=== PATIENT | male | born 1950 | race Caucasian/White ===

== ENCOUNTER 2021-01-21 13:35 | Inpatient (IN) | payer OTHER ==
[~2021-01-21] VITALS: Ht 177.8 cm; Wt 103.0 kg
[~2021-01-21 13:35] MED LIST: ADULT LOW DOSE81 MG PO; ASPIRIN81 M2 PO; CARDURA8 MG PO
[2021-01-21 13:45] VITALS: BP 113/74
--- NOTE | 2021-01-21 13:59 | NUR ---
PT NOTES ONSET OF ABDOMINAL PAIN, NAUSEA AND DIARRHEA ONSET 0300AM TODAY. PT DENIES VOMITING. PT DENIES FEVER. PT DENIES URINARY S/S. PT DENIES BLOOD IN STOOL. PT STATES ONLY GI HX IS HAVING GALLBLADDER REMOVED. PT STATES EATING AND DRINKING NORMALLY YESTERDAY. PT DENIES BEING AROUND ANYONE SICK. PT DAUGHTER AT BEDSIDE. PT IS ALERT AND ORIENTED X4, GCS 15, PT AMBULATORY WITH STEADY GAIT, P FLOWERS, PT SKIN PWD, VSS ON RA, CALL LIGHT ENCOURAGED TO USE
[2021-01-21 14:12] LABS: HEMOGLOBIN 15.7 gm/dL (14.0-18.0); MCHC 34.3 g/dL (28.0-37.0); PLATELET COUNT 196 thou/uL (150-400); WBC 7.8 thou/uL (4.0-11.0)
[2021-01-21 14:14] LABS: BASOPHILS 0.1 % (0.0-2.0); HEMATOCRIT 45.8 % (42.0-52.0); LYMPHOCYTES 6.3 % (24.0-44.0); MCH 31.1 pg (26.0-34.0); MCV 90.6 fL (80.0-100.0); MONOCYTES 3.2 % (1.0-8.0); POLYS 90.4 % (36.0-66.0); RBC 5.05 mil/uL (4.50-6.00); RDW 14.1 % (10.5-14.5)
[2021-01-21 14:28] LABS: POTASSIUM 3.5 mmol/L (3.5-5.1)
[2021-01-21 14:34] LABS: ALBUMIN 3.8 g/dL (3.4-5.0); DIRECT BILIRUBIN 0.2 mg/dL (<0.1-0.2); TOTAL BILIRUBIN 0.9 mg/dL (0.2-1.0)
[2021-01-21 15:20] LABS: URINE BILIRUBIN NEGATIVE (Negative); URINE BLOOD NEGATIVE (Negative); URINE CLARITY CLEAR; URINE COLOR YELLOW; URINE GLUCOSE-RANDOM* NEGATIVE (Negative); URINE KETONES TRACE (Negative); URINE LEUKOCYTES-REFLEX NEGATIVE (Negative); URINE NITRITE-REFLEX NEGATIVE (Negative); URINE PROTEIN (DIPSTICK) NEGATIVE (Negative)
[2021-01-21 16:35] VITALS: BP 140/81
[2021-01-21 16:48] VITALS: BP 133/68
[2021-01-21 17:14] VITALS: BP 138/68
[2021-01-21] MEDS ORDERED: HYDROCHLOROTHIA25 M1 PO (18:19)
[2021-01-21] MEDS ORDERED: ALLOPURINOL 10100 M3 PO (18:19)
[2021-01-21] MEDS ORDERED: OMEPRAZOLE40 MG PO (18:20)
[2021-01-21] MEDS ORDERED: IRON325 PO (18:21)
[2021-01-21 18:52] VITALS: BP 122/66
--- NOTE | 2021-01-21 19:49 | NUR ---
Admitted from the ER at approx 1715 due to SBO; transferred to bed safely. On telemetry; no complains and signs of chest pain, crushing sensation and heaviness. Assisted in ADLs. Vital signs stable. On room air. Admission assessment, history, education done; admission forms signed. On nothing per orem- pt informed and aware; mouth swabs done. With NG tube at L nare- a/w xray to be done to confirm placement then to be hooked to low intermitted suction. With SL at R AC- intact. Up ad wade. Continent of bowel and bladder, Pt's belongings documented; with daughter at bedside during admission. No complains of pain made during assessment. Called Dr Saini's office; pt requesting to have sleeping medication- order for ativan obtained PRN OD at HS only; ordered IVF as well D5NS at 125cc/hr, verified w/ physician if pt to have surgery tomorrow so covid swab can be done, physician hang up- pt and daughter updated re: plan of care. Verified from chest xray result- NG in pt's stomach- connected to low intermitted suction- output to be measured and recorded. To continue monitoring patient.
[2021-01-22 04:36] VITALS: BP 112/60
--- NOTE | 2021-01-22 06:10 | NUR ---
RECEIVED CARE OF THIS PATIENT AT 1900. PATIENT ALERT AND ORIENTED X4. UP TO BATHROOM WITH SBA. HAS NG IN L NARE AT THE 70CM MARKER. IS NPO D/T SBO AND SURGERY THIS AM. C/O ONLY MILD PAIN OF 2 IN LOWER ABD. SLEPT OFF AND ON DURING NIGHT.
[2021-01-22 08:35] LABS: HEMATOCRIT 38.4 % (42.0-52.0); MCH 30.6 pg (26.0-34.0); MCHC 33.8 g/dL (28.0-37.0); MCV 90.7 fL (80.0-100.0); RBC 4.23 mil/uL (4.50-6.00); RDW 13.9 % (10.5-14.5)
[2021-01-22 08:46] VITALS: BP 128/63
[2021-01-22 08:49] LABS: ALBUMIN 2.9 g/dL (3.4-5.0); CALCIUM 7.8 mg/dL (8.5-10.1); PHOSPHORUS 2.6 mg/dL (2.6-4.7); POTASSIUM 3.2 mmol/L (3.5-5.1)
--- NOTE | 2021-01-22 12:15 | NUR ---
PT ADMTITED RELATED TO ABDOMINAL PAIN. CM REVIEWED CHART AND SPOKE WITH CARE TEAM. CM MET WITH PT AND DTR AT BEDSIDE THIS DAY. PT APPEARED TO BE A&O X4. CM ROLE INTRODUCED. PT INDICATED HE LIVES IN A HOUSE WITH HIS SPOUSE WITH 4 STEPS TO ENTER AND A FULL FLIGHT TO BASEMENT. 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 PT INDICATED NO DME OR HH MACHINIST/MACHINE BUILDER. PT INDICATED PLANS TO RETURN HOME ONCE MEDCIALLY STABLE. PT IS BPCI. PT WITH NGT IN PLACE. MAY NEED DIAGNOSTIC EX LAP IF SBO DOESN'T RESOLVE. CM FOLLOWING REGARDING DC PLANNING.
--- NOTE | 2021-01-22 15:26 | NUR ---
ASSUMED PT CARE THIS AM. PT A&OX4, VSS. ABLE TO MAKE NEEDS KNOWN. IV PATENT, SLUIDS INFUSING WITHOUT ISSUE. NG TUBE TO LEFT NARE, TAPE REINFORCED. PATIENT IS ON ROOM AIR. PAIN IN STOMACH IS A 3/10, DENYING PAIN MEDS AT THIS TIME. LYNN CATHETER PLACED, DRAINING WELL. PATIENT ABLE TO REPOSITION SELF, BUT REFUSING TO TURN FROM SIDE TO SIDE WHEN ASKED. PATIENT REMAINS NPO. PATIENT ON TELEMETRY. FALL PRECAUTIONS ARE IN PLACE, CALL LIGHT IS WITHIN REACH.
--- NOTE | 2021-01-22 16:15 | NUR ---
BPCI letter and preferred network list provided patient, lives in home setting
[2021-01-22 17:06] VITALS: BP 128/61
[2021-01-22 19:00] VITALS: BP 126/75
[2021-01-23] VITALS (8 sets, daily range): BP systolic 119–133; BP diastolic 62–68
--- NOTE | 2021-01-23 03:48 | NUR ---
PT IS A/O X4 AND IS UP WITH ASSISTANCE. DENIES C/O PAIN OR DISCOMFORT. VSS. ROOM AIR. LYNN IN PLACE AND DRAINING YELLOW URINE. NG IN PLACE TO THE LEFT NARE HOOKED UP TO LOW INTERMITTENT SUCTION. FALL PRECAUTIONS IN PLACE, CALL LIGHT IS WITHIN REACH. PT IS CURRENTLY NPO AWAITIN PROCEDURE. CALLS OUT APPROPRIATELY. WILL CONTINUE TO MONITOR.
[2021-01-23 06:14] LABS: HEMATOCRIT 39.5 % (42.0-52.0); HEMOGLOBIN 13.5 gm/dL (14.0-18.0); MCHC 34.1 g/dL (28.0-37.0); MCV 90.9 fL (80.0-100.0); RBC 4.34 mil/uL (4.50-6.00); RDW 13.7 % (10.5-14.5); WBC 10.2 thou/uL (4.0-11.0)
[2021-01-23 06:31] LABS: CREATININE 0.9 mg/dL (0.7-1.3); MAGNESIUM 1.8 mg/dL (1.8-2.4); PHOSPHORUS 2.9 mg/dL (2.6-4.7); POTASSIUM 3.5 mmol/L (3.5-5.1)
--- NOTE | 2021-01-23 11:33 | NUR ---
PT HAD DIAGNOSTIC LAPAROSCOPY THIS DAY. CM FOLLOWING REGARDING DC PLANNING NEEDS.
--- NOTE | 2021-01-23 19:53 | NUR ---
Pt was already in OR during shift change. Back to room approx 11am, transferred to room safely. Still on NPO- pt informed and aware; mouth swabs provided. at bedside, update given. On telemetry; no complains and signs of chest pain, crushing sensation and heaviness. Assisted in ADLs. On O2 at 2lpm via nasal cannula. With NG at L nare, 70cm lottei, connected to LIS, for 1 more day of decompression as per post op nurse. With SL at L hand and R AC; post op IVF of LR resumed, night RN informed LR is onetime order then to resume prev ordered IVF for pt. Post of lap sites with dermabond, C/D/I; no bleeding and drainage noted. Pt able to rest comfortably post op. Complained of pain, due PRN pain meds given as prescribed. With ba in place, draining well; output measured and recorded accordingly. To continue monitoring patient.
--- NOTE | 2021-01-24 04:32 | NUR ---
PATIENT NPO THIS SHIFT. PAIN CONTROLLED THIS SHIFT. PATIENT HAD BLACK OUTPUT FROM NG TUBE. PATIENT ON 2L OF OXYGEN NO SOA OR DISTRESS NOTED THIS SHIFT. PATIENT HAS 5 LAP SITE C/D/I. FALL PRECAUTION IN PLACE. PATIENT IN BED ASLEEP AT THIS TIME BREATHING REGULAR AND UNLABOURED.
[2021-01-24 04:49] VITALS: BP 121/69
[2021-01-24 08:16] VITALS: BP 130/72
--- NOTE | 2021-01-24 09:07 | O ---
[facility] [place] [address] OPERATIVE REPORT Name: MARQUISE CORONA Room #: 457-P ADM IN M.R.#: [id number] Admission: 01/21/21 Attend Phys: Herb Saini MD Discharge: Date of : 52 Report #: [id number] THIS REPORT FOR: cc: Marjorie Restrepo MD, Cora A. MD Patterson, Jonathan D. MD ~ DOC #: [id number] Javier Will MD DATE OF SERVICE: 01/23/2021 PREOPERATIVE DIAGNOSIS: Small-bowel obstruction. POSTOPERATIVE DIAGNOSIS: No evidence of small bowel mechanical obstruction. OPERATION: Diagnostic laparoscopy. SURGEON: Javier Will MD. ANESTHESIA: General. ESTIMATED BLOOD LOSS: Minimal. COMPLICATIONS: None. DESCRIPTION OF PROCEDURE: After informed consent was obtained, the patient was brought to the operating room and placed supine. SCDs were placed and working. Preoperative antibiotics were administered, general anesthesia was induced. The abdomen was prepped and draped in the usual sterile fashion. A 10 mm incision was made above the umbilicus. Fascia was incised and a trocar was placed. Pneumoperitoneum was established. Two right-sided 5 mm ports were placed under direct vision. I was able to examine the abdomen. The liver appeared normal. The stomach appeared somewhat distended, but not overly distended. I then ran the small bowel from the ligament of Treitz down to the cecum. The small bowel appeared normal. It was slightly dilated in some areas, but there was no evidence of malrotation or kinking or mechanical obstruction. The cecum appeared normal. There was some scarring of the mesentery in the right upper quadrant. However, the colon was distended throughout the right colon, transverse colon and left colon. It did taper down in the sigmoid colon. Again, there was no evidence of a mechanical obstruction. This appears to be more functional. The ports were then removed under direct vision. The fascia at the umbilicus was closed with two [id number] 0 Vicryl sutures. The skin was closed with 4-0 Monocryl. Incisions were dressed with Steri-Strips. COMPLICATIONS: None. DISPOSITION: The patient was taken to recovery in satisfactory condition. [address] [address] OPERATIVE REPORT Name: MARQUISE CORONA Room #: 457-P [facility]#: [id number] Admission: 01/21/21 Attend Phys: Herb Saini MD Discharge: Date of : 52 Report #: [id number] Javier Will MD JDP/KDA <ELECTRONICALLY SIGNED> By: Javier Will MD 01/24/21 [id number] Javier Will MD /gal
--- NOTE | 2021-01-24 16:23 | NUR ---
PT IS POD# 1 FROM DIAGNOSTIC LAPAROSCOPY. PT STILL WITH NGT IN PLACE. CM FOLLOWING REGARDING DC PLANNING.
[2021-01-24 18:04] VITALS: BP 112/62
[2021-01-24 19:20] VITALS: BP 116/71
--- NOTE | 2021-01-24 19:56 | NUR ---
ASSUMED CARE OF PATIENT AT SHIFT CHANGE. ASSESSMENT CHARTED. MEDS ADMINSTERED PER EMAR. VSS. PATIENT REMAINED ON NPO STATUS FOR NG TUBE. NG TUBE 0 OUTPUT. PROVIDER NOTIFIED AND PUT IN ORDERS FOR D/C OF NG TUBE. NG TUBE DISCONTINUED W NO ISSUES. FLUIDS STILL INFUSING ON R AC W NO ISSUES. PATIENT VERY PLEASANT AND CHEERFUL POST NG TUBE REMOVAL. VOICING MINIMAL ABD PAIN; GIVEN TORADOL FOR RELIEF. PROVIDER PAGED FOR REQUEST OF NEW ORAL MEDS PER PATIENT ON CLEAR LIQUID DIET. CLR LIQUID DIET TOLERATED WELL W NO ISSUES. PATIENT PROGRESSING WELL. CONTINUED FREQUENT MONITORING THROUGHOUT SHIFT; ENDORSED TO NOC JIGAR
[2021-01-25 03:20] VITALS: BP 120/75
--- NOTE | 2021-01-25 05:53 | NUR ---
Pt. rested quietly at intervals during the night when checked on during frequent rounds. Po pain med given (see emar) for c/o abdominal pain with some relief noted. Lapsites to abdomen are intact.
[2021-01-25 10:35] VITALS: BP 130/77
--- NOTE | 2021-01-25 14:09 | NUR ---
ASSUMED PT CARE THIS AM. PT IS ALERT & ORIENTED X4. PT HAS R AC SALINE LOCKED. PT ON TELE MONITOR ON. PT DENIES PAIN, NAUSEA AND VOMITING. PT TOLERATED MEDICATION AND DIET WELL THIS AM. PT BEEN PASSING FLATUS BUT AWAITING FOR BM FOR PENDING HOME DC. PT HAS LYNN ON. PT USES CPAP @ NIGHT. PT AT THE BEDSIDE. PT ON THE BED, BED ON THE LOWEST POSITION, SIDE RAILS UP, CALL LIGHT WITHIN REACH. WILL CONTINUE TO MONITOR PT. FOLLOW POC.
--- NOTE | 2021-01-25 15:23 | NUR ---
CARE TEAM INDICATED THAT PT MAY BE MEDICALLY STABLE TO DC HOME THIS DAY AFTER HE HAS A BM. CM VISITED WITH PT AND SPOUSE AT BEDSIDE, THEY AND PHYSICIAN ASKED THAT CM THOMAS HIS UROLOGIST TO SEE IF PT'S SHCEULED APPOINMENT COULD BE MOVED UP FORM 02/05. CM CALLED DR. BOY ANTHONY'S OFFICE AND THEY DON'T HAVE ANYTHING SOONER. CM NOTIFIED PT, SPOUSE, AND PHYSICIAN. PT TO DC HOME TO SELF CARE. NO OTHER CM INTERVENETION INDICATED. CASE CLOSED.
[2021-01-25 16:14] VITALS: BP 139/79
[2021-01-25 20:06] VITALS: BP 134/70
--- NOTE | 2021-01-26 03:13 | NUR ---
ABDOMINAL LAP SITES LOOK OKAY WITH STERI STRIPS. PT REPORTS PASSING FLATUS AND TOLARATING ORAL DIET-NO NAUSEA OR VOMITING.AWAITING BM.BOWEL SOUNDS + X 4. CPAP AT NIGHT. SB ON TELEMETRY. AFEBRILE. DENIES ANY OTHE DISCOMFORT.PROGRESSING TOWARDS CARE GOALS.
[2021-01-26 07:35] VITALS: BP 126/71
--- NOTE | 2021-01-26 12:21 | NUR ---
ASSUMED PATIENT CARE THIS AM. PATIENT VSS, A&OX4. ABLE TO MAKE NEEDS KNOWN. IV PATENT, FLUIDS DISCONTINUED ORDERED. LYNN CATHETER REMOVED ORDERED, INSTRUCTED PATIENT TO HYDRATE TO ENCOURAGE URINATION FOLLOWING LYNN REMOVAL. PATIENT REPORTING NO PAIN AT THIS TIME. PATIENT IS UP WITH STANDBY ASSIST. FALL PRECAUTIONS IN PLACE, CALL LIGHT WITHIN REACH.
[2021-01-26 16:22] VITALS: BP 146/80
[2021-01-26 19:20] VITALS: BP 121/69
[2021-01-27 02:30] VITALS: BP 119/73
[2021-01-27 07:18] VITALS: BP 109/73
--- NOTE | 2021-01-27 07:39 | NUR ---
Assumed pt care at 1900. A/OX4,VSS. Up ad wade in room w/o problems. Denied pain on initial encounter. Has 3 steri-strips on mid abd C/D/I.Denies N/V. C/o abd pain this morning 11/14,medicated with Tylenol per EMAR. Wears CPAP at [facility] on telemetry.
[2021-01-27 11:56] VITALS: BP 109/73
--- NOTE | 2021-01-27 12:30 | NUR ---
ASSUMED PT CARE THIS AM. PT VSS, A&OX4. PATIENT ABLE TO MAKE ALL NEEDS KNOWN. IV PATENT, SALINE LOCKED. PATIENT REMAINS CONTINENT AND AMBULATES TO THE BATHROOM WITH NO ASSIST. REPORTS NO PAIN, NUMBNESS, TINGLING, OR WEAKNESS. PATIENT ON ROOM AIR. REMAINS ON TELE. TOOK MEDICATIONS WITHOUT ISSUE. PATIENT REPORTS UNDERSTANDING OF DISCHARGE TEACHING. IV REMOVED, TELEMETRY REMOVED. PATIENT OFF UNIT AT 1225 WITH .
== END 2021-01-27 12:03 | disposition home or self-care (01) | DRG 346 ==
LOC: ER 13:35 → EROBS 16:04 → 4W 16:04
PROVIDERS: Nurse Practitioner; Surgery; ADMIT Surgery; ATTEND Surgery
DX: K56.7 Ileus, unspecified (principal); I10 Essential (primary) hypertension; R33.9 Retention of urine, unspecified; Z20.822 Contact with and (suspected) exposure to COVID-19; Z79.82 Long term (current) use of aspirin; Z79.899 Other long term (current) drug therapy; Z88.8 Allergy status to other drugs, medicaments and biological substances
CPT/HCPCS: 10045; 50010; 50101; 50411; 50555; 52265; 52266; 53307; 53314; 56462; 56525; 56526; 58574; 62110; 62900; 70005

== ENCOUNTER 2021-02-02 08:00 | Emergency (ER) | payer OTHER ==
[~2021-02-02] VITALS: Ht 177.8 cm; Wt 102.1 kg
[~2021-02-02 08:00] MED LIST changes: +ALLOPURINOL 10100 M3 PO; +HYDROCHLOROTHIA25 M1 PO; +IRON325 PO; +OMEPRAZOLE40 MG PO
[2021-02-02 08:36] LABS: URINE BILIRUBIN NEGATIVE (Negative); URINE BLOOD NEGATIVE (Negative); URINE CLARITY CLEAR; URINE COLOR YELLOW; URINE GLUCOSE-RANDOM* NEGATIVE (Negative); URINE KETONES NEGATIVE (Negative); URINE LEUKOCYTES-REFLEX NEGATIVE (Negative); URINE NITRITE-REFLEX NEGATIVE (Negative); URINE PROTEIN (DIPSTICK) NEGATIVE (Negative); URINE SPECIFIC GRAVITY 1.025 (1.005-1.035); URINE UROBILINOGEN 0.2 E.U./dl (0.2-1.0)
[2021-02-02 08:41] LABS: ABSOLUTE NEUTROPHILS 4.1 thou/uL (1.4-8.2); BASOPHILS 0.6 % (0.0-2.0); EOSINOPHILS 0.9 % (0.0-3.0); HEMATOCRIT 41.8 % (42.0-52.0); HEMOGLOBIN 14.3 gm/dL (14.0-18.0); LYMPHOCYTES 19.4 % (24.0-44.0); MCH 30.9 pg (26.0-34.0); MCHC 34.2 g/dL (28.0-37.0); MCV 90.3 fL (80.0-100.0); MONOCYTES 5.7 % (1.0-8.0); PLATELET COUNT 232 thou/uL (150-400); POLYS 73.4 % (36.0-66.0); RBC 4.63 mil/uL (4.50-6.00); WBC 5.6 thou/uL (4.0-11.0)
[2021-02-02 08:46] LABS: CALCIUM 8.6 mg/dL (8.5-10.1); CREATININE 0.9 mg/dL (0.7-1.3); POTASSIUM 3.8 mmol/L (3.5-5.1)
[2021-02-02 08:52] LABS: ALBUMIN 3.7 g/dL (3.4-5.0); TOTAL BILIRUBIN 0.3 mg/dL (0.2-1.0)
[2021-02-02 09:10] VITALS: BP 110/62
== END 2021-02-02 09:10 | disposition home or self-care (01) ==
LOC: ER 08:00
PROVIDERS: Emergency Medicine
DX: R33.9 Retention of urine, unspecified (principal); I10 Essential (primary) hypertension; Z88.5 Allergy status to narcotic agent; Z79.82 Long term (current) use of aspirin; Z79.899 Other long term (current) drug therapy; Z87.442 Personal history of urinary calculi